=== PATIENT | female | born 1950 | race Native Hawaiian/Other Pacific Islander ===

== ENCOUNTER 2017-02-07 10:26 | Outpatient (CLI) | payer OTHER ==
[~2017-02-07 10:26] MED LIST: AMOX500C85 PO; BRIMONIDINE0.2 % OP; CADUET5 MG/20 MG OR; FURO40TA93 PO; GLIP10TA55 PO; HYDR25TA15 PO; JANUVIA100 MG PO; LEVEMIR FLEXPEN SC; SIMV40TA57; TRAM50TA PO
== END 2017-02-07 19:03 | disposition home or self-care (01) ==
LOC: RAD 10:26
DX: M79.601 Pain in right arm (principal)

== ENCOUNTER 2017-02-14 10:37 | Outpatient (CLI) | payer OTHER ==
[2017-02-14 11:45] LABS: PLATELET COUNT 205 K/uL (152-353)
[2017-02-14 12:07] LABS: POTASSIUM 3.9 mmol/L (3.6-5.2); SODIUM 138 mmol/L (136-145)
== END 2017-02-14 11:40 | disposition home or self-care (01) ==
LOC: LABW 10:37
PROVIDERS: Internal Medicine
DX: E11.43 Type 2 diabetes mellitus with diabetic autonomic (poly)neuropathy (principal)
CPT/HCPCS: 36415; 80053; 80061; 81000; 82043; 82570; 83036; 84443; 85027

== ENCOUNTER 2017-08-07 18:15 | Outpatient (CLI) | payer OTHER | END 2017-08-07 21:25 | disposition home or self-care (01) | LOC: LAB 18:15 | DX: L02.811 Cutaneous abscess of head [any part, except face] (principal) | CPT/HCPCS: 87070; 87077; 87185; 87186; 87205 ==

== ENCOUNTER 2017-11-30 09:10 | Outpatient (CLI) | payer OTHER ==
[2017-11-30 09:33] LABS: PLATELET COUNT 203 K/uL (152-353)
== END 2017-11-30 19:13 | disposition home or self-care (01) ==
LOC: LABW 09:10
PROVIDERS: Internal Medicine
DX: E11.9 Type 2 diabetes mellitus without complications (principal); R82.99 Other abnormal findings in urine
CPT/HCPCS: 36415; 80053; 80061; 81000; 82043; 82570; 83036; 84443; 85027; 87086; 87088

== ENCOUNTER 2018-03-26 10:54 | Outpatient (CLI) | payer OTHER ==
[2018-03-26 11:33] LABS: PLATELET COUNT 198 K/uL (152-353)
[2018-03-26 11:47] LABS: POTASSIUM 3.8 mmol/L (3.6-5.2)
== END 2018-03-26 22:01 | disposition home or self-care (01) ==
LOC: LABW 10:54
PROVIDERS: Internal Medicine
DX: E11.9 Type 2 diabetes mellitus without complications (principal); Z79.899 Other long term (current) drug therapy
CPT/HCPCS: 36415; 80053; 80061; 81000; 83036; 84443; 85027

== ENCOUNTER 2018-05-06 12:48 | Outpatient (CLI) | payer OTHER | END 2018-05-06 19:59 | disposition home or self-care (01) | LOC: RAD 12:48 | DX: Z12.31 Encounter for screening mammogram for malignant neoplasm of breast (principal) ==

== ENCOUNTER 2018-06-04 08:33 | Outpatient (CLI) | payer OTHER | END 2018-06-04 21:19 | disposition home or self-care (01) | LOC: RAD 08:33 | DX: Z13.820 Encounter for screening for osteoporosis (principal); Z78.0 Asymptomatic menopausal state ==

== ENCOUNTER 2018-10-22 08:41 | Outpatient (CLI) | payer OTHER ==
[~2018-10-22] VITALS: Ht 157.5 cm; Wt 76.2 kg
== END 2018-10-22 22:57 | disposition home or self-care (01) ==
LOC: NM 08:41
DX: R07.89 Other chest pain (principal)
CPT/HCPCS: A9500; J2785

== ENCOUNTER 2018-11-26 09:40 | Emergency (ER) | payer OTHER ==
[~2018-11-26] VITALS: Ht 157.5 cm; Wt 76.2 kg
[2018-11-26 10:54] LABS: PLATELET COUNT 232 K/uL (152-353); POTASSIUM 3.7 mmol/L (3.6-5.2); SODIUM 134 mmol/L (136-145)
[2018-11-26 11:20] LABS: PARTIAL THROMBOPLASTIN TIME 23.9 SECONDS (24.5-33.6)
[2018-11-26 15:15] VITALS: BP 135/55; TEMP 98
== END 2018-11-26 15:15 | disposition short-term general hospital (02) ==
LOC: ED 09:40
PROVIDERS: Family Medicine
DX: R55 Syncope and collapse (principal); T82.119A Breakdown (mechanical) of unspecified cardiac electronic device, initial encounter; E11.65 Type 2 diabetes mellitus with hyperglycemia; W01.198A Fall on same level from slipping, tripping and stumbling with subsequent striking against other object, initial encounter; Y92.89 Other specified places as the place of occurrence of the external cause
CPT/HCPCS: 36415; 80053; 81000; 82550; 82962; 84484; 85027; 85610; 85730; 93005; 96374; 99284; J1815

== ENCOUNTER 2018-11-26 15:22 | Outpatient (CLI) | payer OTHER | END 2018-11-26 15:53 | disposition short-term general hospital (02) | LOC: AMB 15:22 | DX: R55 Syncope and collapse (principal); T82.119A Breakdown (mechanical) of unspecified cardiac electronic device, initial encounter; G44.89 Other headache syndrome; H57.11 Ocular pain, right eye; E10.65 Type 1 diabetes mellitus with hyperglycemia; W18.39XA Other fall on same level, initial encounter; Y92.89 Other specified places as the place of occurrence of the external cause | CPT/HCPCS: A0425; A0427 ==

== ENCOUNTER 2019-06-30 09:39 | Outpatient (CLI) | payer OTHER ==
[2019-06-30 14:49] LABS: PLATELET COUNT 218 K/uL (152-353)
[2019-06-30 15:28] LABS: POTASSIUM 4.4 mmol/L (3.6-5.2)
== END 2019-06-30 19:20 | disposition home or self-care (01) ==
LOC: LAB 09:39 → RAD 09:39
PROVIDERS: Nurse Practitioner Family
DX: R06.02 Shortness of breath (principal); I10 Essential (primary) hypertension; E11.43 Type 2 diabetes mellitus with diabetic autonomic (poly)neuropathy; M19.90 Unspecified osteoarthritis, unspecified site; K21.9 Gastro-esophageal reflux disease without esophagitis; E78.49 Other hyperlipidemia; F41.8 Other specified anxiety disorders
CPT/HCPCS: 80053; 80061; 83036; 84439; 84443; 85027

== ENCOUNTER 2019-08-15 13:40 | Outpatient (CLI) | payer OTHER | END 2019-08-15 16:00 | disposition home or self-care (01) | LOC: MAMMO 13:40 | DX: Z12.31 Encounter for screening mammogram for malignant neoplasm of breast (principal); M19.90 Unspecified osteoarthritis, unspecified site; N95.8 Other specified menopausal and perimenopausal disorders ==

== ENCOUNTER 2020-09-09 10:13 | Outpatient (CLI) | payer OTHER | END 2020-09-09 20:08 | disposition home or self-care (01) | LOC: MAMMO 10:13 | PROVIDERS: ATTEND Nurse Practitioner Family | DX: Z12.31 Encounter for screening mammogram for malignant neoplasm of breast (principal) ==

== ENCOUNTER 2020-10-30 15:04 | Emergency (ER) | payer OTHER ==
[~2020-10-30] VITALS: Ht 157.5 cm; Wt 76.2 kg
[2020-10-30 15:05] VITALS: TEMP 96.8
[2020-10-30 15:47] LABS: PLATELET COUNT 199 K/uL (152-353)
[2020-10-30 16:03] LABS: PARTIAL THROMBOPLASTIN TIME 24.2 SECONDS (24.5-33.6)
[2020-10-30 16:05] LABS: POTASSIUM 4.1 mmol/L (3.6-5.2); SODIUM 132 mmol/L (136-145)
[2020-10-30 17:34] VITALS: BP 142/56
== END 2020-10-30 17:41 | disposition home or self-care (01) ==
LOC: ED 15:04
PROVIDERS: Family Medicine
DX: J20.9 Acute bronchitis, unspecified (principal); Z20.828 Contact with and (suspected) exposure to other viral communicable diseases
CPT/HCPCS: 36415; 80053; 82550; 83880; 84484; 85027; 85379; 85610; 85730; 87635; 93005; 94664; 96365; 96375; 99284; J0696; J2930; U0003

== ENCOUNTER 2021-11-02 11:02 | Outpatient (CLI) | payer OTHER | END 2021-11-02 18:59 | disposition home or self-care (01) | LOC: RESP 11:02 | PROVIDERS: ATTEND Nurse Practitioner | DX: R07.89 Other chest pain (principal); R06.09 Other forms of dyspnea ==

== ENCOUNTER 2022-03-29 09:54 | Outpatient (CLI) | payer OTHER ==
[2022-03-29 10:14] LABS: PLATELET COUNT 201 K/uL (152-353)
[2022-03-29 10:42] LABS: POTASSIUM 3.2 mmol/L (3.6-5.2)
== END 2022-03-29 19:36 | disposition home or self-care (01) ==
LOC: LABW 09:54
PROVIDERS: ATTEND Nurse Practitioner Family
DX: E11.43 Type 2 diabetes mellitus with diabetic autonomic (poly)neuropathy (principal); M19.90 Unspecified osteoarthritis, unspecified site; E78.49 Other hyperlipidemia; F41.8 Other specified anxiety disorders; K21.9 Gastro-esophageal reflux disease without esophagitis; N18.9 Chronic kidney disease, unspecified; L40.8 Other psoriasis; I12.9 Hypertensive chronic kidney disease with stage 1 through stage 4 chronic kidney disease, or unspecified chronic kidney disease
CPT/HCPCS: 80053; 80061; 82306; 82607; 83036; 84439; 84443; 85027